=== PATIENT | female | born 1990 | race Two or more races ===

== ENCOUNTER → 2017-02-12 | Outpatient (CLI) | payer OTHER ==
--- NOTE | ~2017-02-12 | US24 ---
[facility] A Service of [facility] & [facility] RADIOLOGY TEXT RESULTS PATIENT: SPIKE MYERS LOCATION: [facility] : [birth year] UNIT #: [id number] AGE: [address]: SILVIA SAEZ APRN SEX: F ORDER DR: [id number] [facility] [address] [place], [place] [address] [id number] O MR#: [id number] Acc #: [id number] NAME: SPIKE MYERS : 1990 SEX: F STUDY DATE/TIME: 02/12/2017 14:25 UNIT: [facility] ROOM: STUDY DESCRIPTION: US Breast Unilateral Attending Physician: Bang Saez Aprn Ordering Physician: Bang Saez Aprn Primary Care Physician: Vincenzo Padron M.D. MEDICAL IMAGING REPORT This report is preliminary unless electronic signature is present EXAM Diagnostic right breast ultrasound. DATE 02/12/2017 HISTORY Follow up right breast nodule. 2 o'clock right breast nodule underwent ultrasound-guided core biopsy 09/27/2016 with benign results. Six-month followup was recommended. COMPARISON Diagnostic right breast ultrasound 09/23/2016. Ultrasound-guided core needle biopsy right breast nodule, 09/27/2016. FINDINGS Target sonographic imaging was obtained of the right breast. At the 2 o'clock axis, a well-circumscribed hypoechoic nodule is demonstrated wider than tall, with enhanced acoustic transmission, in keeping with a benign finding such as a hemorrhagic or proteinaceous cyst, corresponding to the benign pathology results earlier this year. On today's study, it measures approximately 7 x 4 x 3 mm, stable to slightly smaller. No additional nodules are identified. IMPRESSION 1. Right breast BIRADS 2. Benign findings. The 2 o'clock right breast nodule is stable to slightly smaller than on the previous examination and is concordant with the recent benign biopsy results. 2. Patient is advised to return for routine screening mammogram beginning at the age of 40, sooner if deemed appropriate based upon physical examination findings and clinical history. 3. The pertinent findings and recommendations were discussed with the patient via an interpreter translator today in the radiology department. [facility] A Service of [facility] & [facility] RADIOLOGY TEXT RESULTS PATIENT: SPIKE MYERS LOCATION: [facility] : [birth year] UNIT #: [id number] AGE: [address]: SILVIA SAEZ APRN SEX: F ORDER DR: Patients over the age of 40 are entered into a reminder system with target due date for the next mammogram. A result letter will also be sent to the patient. BIRADS: 2 Benign finding. Dictated by... Teodora Terry M.D. THIS IS AN ELECTRONICALLY VERIFIED REPORT Teodora Terry M.D. at 02/13/2017 7:11 AM SHRUTI/kali TD: 02/12/2017 15:19 JOB #: [id number] MEDICAL IMAGING REPORT Page 1 of 1 COPY
== END | disposition home or self-care (01) ==
LOC: CMAM 14:14
DX: N63 Unspecified lump in breast (principal)
CPT/HCPCS: 76641